=== PATIENT | female | born 1975 | race Caucasian/White ===

== ENCOUNTER 2018-08-19 08:50 | Day surgery (SDC) | payer OTHER, SELFPAY ==
[2018-08-09 07:53] VITALS: BMI 35.6
[2018-08-19] VITALS (9 sets, daily range): BP systolic 104–129; BP diastolic 56–85; PULSE 76–98; RESP 14–24; TEMP 36.2–36.6; O2SAT 95–100; BMI 35.6
--- NOTE | 2018-08-19 | DI.RAD.S_ITS ---
PROCEDURE: XR LUMBAR SPINE 2-3V INDICATIONS: L4-5 MICRODISCECTOMY TECHNIQUE: 2 views of the lumbar spine were acquired. COMPARISON: [facility], CR, XR LUMBAR SPINE W OBL MIN 4VW, 06/18/2017, 12:05. [facility], CR, XR LUMBAR SPINE 2 OR 3 VIEWS, 04/30/2018, 8:42. FINDINGS: Bones: Access port placement for microdiscectomy centered to the right of midline at the posterior elements of L4-L5. Soft tissues: Overlying bowel gas pattern is normal. No suspicious soft tissue calcifications. IMPRESSION: Normal alignment for microdiscectomy port right sided L4-L5 dorsal access. Dictated by: Quentin Huerta M.D. on 08/19/2018 at 16:47 Approved by: Quentin Huerta M.D. on 08/19/2018 at 16:49
[2018-08-19] MEDS: LACTATED RINGERS 1,000 ML 42 ML IV (09:46)
[2018-08-19] MEDS: CEFAZOLIN 2 GM/100 ML FROZ.PIGGY IV (11:25)
--- NOTE | 2018-08-19 11:55 | SUR.OPER ---
Prone on spine table, head in foam head support, padded chest and pelvic supports, gel pad at knees, lower legs supported by pillows; nipples, genitalia and toes free of pressure, arms secured on foam padded arm boards at <90 degrees abduction. Tape over blanket at thigh secured to table.
[2018-08-19] MEDS: BUPIVACAINE 0.25% W/ EPI VIAL 50 ML INJ (12:02)
[2018-08-19] MEDS: methylPREDNISolone acet DEPO 40 MG/ML VIAL INJ (12:03)
--- NOTE | 2018-08-19 12:32 | PM.OP.1 ---
Operative Date/Time/Diagnoses Date of procedure: 08/19/18 Time of procedure: 11:32 Pre-op diagnosis: 1. L4-5 disc herniation 2. L4-5 spondylolisthesis Post-op diagnosis: same Procedure & Clinicians Procedure: 1. L4-5 right microdiscectomy 2. Utilization of microsurgical technique and operating microscope Same procedure as scheduled: Yes Indications: Patient has been having chronic back pain and worsening lumbar radiculopathy. Patient failed multiple conservative management with worsening pain weakness and numbness in her lower extremity. Patient has been having difficulty performing activity of daily living. After discussing risks benefits of treatment options, patient elected proceed with surgery. Surgeon: Pradeep Alfonso Quality Assurance Nurse: Abiola Ann Click Yes if Unassisted: No Anesthesia Type: General Operative Notes Closure Type: primary Specimen(s): none sent Estimated Blood Loss (mL): 10 Blood products transfused: none Procedure in detail: Patient was seen in the preoperative area. Risks and benefits of the surgery was discussed with the patient. Informed consent was obtained from the patient and placed in the chart. Surgical site was marked. Patient was taken to the operative room. General anesthesia was administered. Prophylactic antibiotic was given to the patient less than 30 min before the incision was made. Patient was placed into a prone position on the Layo table. Patient's back was then prepped and draped in the sterile fashion. Time-out was performed at this time. Using AP and lateral C-arm imaging the interval between L4-5 was identified and marked on patient's back. A 1 inch incision 1 in from midline was made on the right side. The fascia was incised in line with skin incision. Globus MARS retractors was placed inside the incision and docked onto the L4 lamina. Using microsurgical technique and operating microscope, a L4 laminotomy was performed using a Kerrison rongeur. Liagamentum flavum was resected at the site of the laminotomy. The disc space at L4-5 was identified. Microdiscectomy was performed by incising the annulus with #11 blade. Microcurettes and pituitary was used to removed herniated disc fragments of disc from the epidural space. After the microdiskectomy was completed, the area medial lateral superior and inferior to the area of the microdiskectomy was inspected and explored using a micro curette. No other impinging structure was identified. The wound was then irrigated with sterile normal saline. 40 mg Depo-Medrol was placed into the epidural space. The deep fascia was closed with 1-0 Vicryl. The subcutaneous tissue was closed with 2-0 Vicryl. The skin was closed with 4-0 Monocryl. Patient tolerated the procedure well. There were no complications. Patient was transferred recovery room in stable condition. Complications: none Condition: stable Disposition: PACU Plan for aftercare: Discharge to home
[2018-08-19] MEDS: HYDROMORPHONE 2 MG INJ 0.5 MG IV ×2 (12:49→12:54)
[2018-08-19] MEDS: OXYCODONE/ACETAMINOPHEN 5/325 TABLET 1 TAB PO ×2 (13:00→13:32)
== END 2018-08-19 13:46 | disposition home or self-care (01) ==
PROVIDERS: Family Provider Physician Assistant; PCP Physician Assistant; Visit Provider Orthopaedic Surgery Orthopaedic Surgery of the Spine
PROC: (CPT 63030; principal; 2018-08-19 11:15)
DX: M51.16 Intervertebral disc disorders with radiculopathy, lumbar region (principal); M43.16 Spondylolisthesis, lumbar region; X50.1XXA Overexertion from prolonged static or awkward postures, initial encounter; F17.210 Nicotine dependence, cigarettes, uncomplicated
CPT/HCPCS: 63030; 72100; 76000; J0330; J0690; J1030; J1100; J1170; J2250; J2405; J2704; J3010

== ENCOUNTER 2019-06-27 09:54 | Inpatient (IN) | payer OTHER, SELFPAY ==
[2019-06-17 08:46] VITALS: BMI 37.9
[2019-06-27] VITALS (16 sets, daily range): BP systolic 100–129; BP diastolic 63–85; PULSE 83–103; RESP 12–18; TEMP 36.5–36.9; O2SAT 93–99; BMI 37.5
--- NOTE | 2019-06-27 | DI.RAD.S_ITS ---
PROCEDURE: XR LUMBAR SPINE 2-3V INDICATIONS: L4-5 TLIF TECHNIQUE: 2 views of the lumbar spine were acquired. COMPARISON: [facility], CR, XR LUMBAR SPINE 2 OR 3 VIEWS, 04/30/2018, 8:42. [facility], CR, XR LUMBAR SPINE 2-3V, 08/19/2018, 11:47. FINDINGS: Bones: 5 lvd-coy-plheryf vertebrae have been documented. There is normal bony alignment established after placement of transverse pedicle screws and vertical fixation rods with interbody disc cage fixation device at the L4-5 level, the targeted level from the operative procedure performed 08/19/18 (port localization for discectomy)... No vertebral body compression fractures. No suspicious bony lesions. Soft tissues: Overlying bowel gas pattern is normal. No suspicious soft tissue calcifications. IMPRESSION: Prior L4-5 port localization for discectomy, current spine fusion crossing L4-5 establishing normal alignment. Interbody disc cage prosthesis device is present, centrally positioned. Dictated by: Quentin Huerta M.D. on 06/27/2019 at 15:35 Approved by: Quentin Huerta M.D. on 06/27/2019 at 15:38
[2019-06-27] MEDS: LACTATED RINGERS 1,000 ML 42 ML IV ×2 (10:30→14:02)
--- NOTE | 2019-06-27 12:09 | PM.PREOP ---
Pre-operative Note Interval Note History & Physical reviewed/Exam performed by Physician: Yes Changes to H&P: No
[2019-06-27] MEDS: CEFAZOLIN 2 GM/100 ML FROZ.PIGGY IV ×2 (13:00→20:52)
[2019-06-27] MEDS: BUPIVACAINE LIPOSOME 266 MG/20 ML VIAL INJ (13:41)
[2019-06-27] MEDS: BUPIVACAINE 0.25% W/ EPI 30 ML VIAL INJ (13:41)
--- NOTE | 2019-06-27 15:35 | PM.OP.1 ---
Operative Date/Time/Diagnoses Date of procedure: 06/27/19 Time of procedure: 12:35 Pre-op diagnosis: 1. L4-5 hx of microdiscectomy with recurrent disc herniation 2. L4-5 spinal stenosis Post-op diagnosis: same Procedure & Clinicians Procedure: 1. L4-5 Postero-lateral and posterior interbody fusion 2. L4-5 interbody cage placement. 3. L4-5 decompressive laminectomy with bilateral facetecomies 4. L4-5 Posterior non-segmental instrumentation 5. [place] of bone marrow from iliac crest 6. Utilization of microsurgical technique and operating microscope Same procedure as scheduled: Yes Indications: Patient has been having chronic back pain and worsening lumbar radiculopathy. Patient had previous history of lumbar microdiskectomy at L4-5 level with temporary relief. Patient's pain worsened over the last 6 month was difficulty performing activity of daily living. Patient failed multiple conservative management with worsening pain weakness and numbness in her lower extremity. Patient has been having difficulty performing activity of daily living. After discussing risks benefits of treatment options, patient elected proceed with surgery. Surgeon: Pradeep Alfonso Correction Officer Reformatory: Laney Cardona Click Yes if Unassisted: No Anesthesia Type: General Operative Notes Closure Type: primary Specimen(s): none sent Prosthetic devices, grafts, tissues, transplants, or devices: Globus revolve screws, Rise cage Estimated Blood Loss (mL): 40 Blood products transfused: none Procedure in detail: Patient was seen in the preoperative area. Risks and benefits of the surgery was discussed with the patient. Informed consent was obtained from the patient and placed in the chart. Surgical site was marked. Patient was taken to the operative room. General anesthesia was administered. Prophylactic antibiotic was given to the patient less than 30 min before the incision was made. Patient was placed into a prone position on the Layo table. Patient's back was then prepped and draped in the sterile fashion. Time-out was performed at this time. Using AP and lateral C-arm imaging the interval between L4-5 was identified and marked on patient's back. A 2 inch incision 2 in from midline was made on the left side first. The fascia was incised in line with skin incision. Globus MARS retractors was placed inside the incision and docked onto the L4 lamina. Using microsurgical technique and operating microscope, a L4 laminectomy and L4-5 facetectomy was performed using a Kerrison rongeur. The disc space at L4-5 was identified. And a total diskectomy was performed at L4-5 level. Patient was found have significant epidural scarring with recurring disc herniation L4-5 level with significant nerve root and thecal sac compression. Laminectomy and total facetectomy was required to decompress the L4-5 level which rendered the L4-5 level grossly unstable and require fusion procedure at the same time. The endplates were decorticated using a rasp and shaver. The total diskectomy and decortication was performed at L4-5 level in order to to accomplish a L4-5 fusion. The local bone from the laminectomy and facetectomy was saved for local bone grafting. After the total diskectomy and decortication was completed, Bio4 bone graft material was combined with local bone that was harvested earlier. At this time, a separate skin is incision was made over the iliac crest. A Jamshidi needle was inserted into the iliac crest through a separate skin incision. 5 cc of bone marrow aspiration was obtained through the separate skin incision using a Jamshidi needle from the iliac crest. The bone marrow aspiration was combined with local bone and the Bio4 bone grafting material. The bone grafting material was placed into the L4-5 interbody space along with a expandable cage. The cage was expanded to its maximum height using the torque limiting screwdriver. At this time a mirror image incision was made on the right side. The fascia was incised in line with the skin incision. Globus MARS retractor was inserted and docked onto the L4-5 posterolateral gutter. Using the power drill, posterior-lateral decortication was performed at L4-5 level until bleeding cortical bone was identified. The remaining bone grafting material was placed into the L4-5 posterior lateral gutter he order to accomplish posterolateral fusion at the L4-5 level. Using the double C-arm technique, pedicle screws were placed into the L4-5 pedicles bilaterally. This was done by placing the Jamshidi needle into the pedicles, then placing the guidewires over the Jamshidi needle, and finally placing the cannulated screws over the guidewires bilaterally. After the pedicle screws were placed, 2 titanium rods was locked into the heads of the pedicle screws using locking caps and torque limiting screwdriver. After all the hardware was placed, and confirmed with AP and lateral C-arm imaging, the wound was then irrigated with sterile normal saline and packed with Ray-Abdelrahman gauze for 3 min to accomplish hemostasis. After the gauze was removed the deep fascia was closed with #1 Vicryl suture. The subcutaneous layer was closed with 2-0 Vicryl. The skin was closed with skin vinicio. Patient tolerated the procedure well. There were no complications. Complications: none Post-operative Condition: stable Disposition: PACU Plan for aftercare: Admit to inpatient hospital
[2019-06-27] MEDS: LORazepam 2 MG/ML INJ 0.25 MG IV ×2 (15:59→16:05)
[2019-06-27] MEDS: fentaNYL 100 MCG/2 ML INJ 50 MCG IV ×2 (16:00→16:10)
[2019-06-27] MEDS: SODIUM CHLORIDE 0.9% 1,000 ML 100 ML IV (17:05)
[2019-06-27] MEDS: OXYCODONE IR 5 MG TABLET 10 MG PO (17:49)
[2019-06-27] MEDS: DOCUSATE 100 MG CAPSULE PO (20:52)
[2019-06-27] MEDS: SENNOSIDES 8.6 MG TABLET 17.2 MG PO (20:52)
[2019-06-28 00:20] VITALS: BP 127/73; PULSE 92; RESP 20; TEMP 37; O2SAT 95
[2019-06-28] MEDS: OXYCODONE IR 5 MG TABLET 10 MG PO ×4 (00:43→12:14)
[2019-06-28] MEDS: SODIUM CHLORIDE 0.9% 1,000 ML 100 ML IV (04:02)
[2019-06-28 04:27] VITALS: BP 116/61; PULSE 92; RESP 18; TEMP 36.8; O2SAT 97
[2019-06-28] MEDS: CEFAZOLIN 2 GM/100 ML FROZ.PIGGY IV (05:16)
[2019-06-28 05:40] LABS: Hematocrit 39.8 % (36-46); Hemoglobin 13.2 g/dL (12.0-16.0)
[2019-06-28] MEDS: SODIUM CHLORIDE 0.9% FLUSH 10 ML IV (07:50)
[2019-06-28] MEDS: DOCUSATE 100 MG CAPSULE PO (07:50)
[2019-06-28 08:00] VITALS: BP 123/66; PULSE 101; RESP 16; TEMP 36.5; O2SAT 96
--- NOTE | 2019-06-28 08:08 | PC.NURSE ---
Addendum entered by Jimena Magana R.N. 06/28/19 14:30: Discharge summary packet reviewed with pt. No voiced concerns. Explained DVT prevention. Prescription for PRN Vistaril and Oxycodone given to pt who will have filled in [place]. States has all belongings. Pt's S.O. Omari present to drive pt home. Pt left unit via wheelchair in no distress at 1419 with this radio script writer. Addendum entered by Jimena Magana R.N. 06/28/19 13:16: Pain controlled with PRn Oxycodone. Last dose around 1215 given prior to OT session and discharge home. Lower back dressing removed, area around both incisions cleansed with NS and coversite dressing applied. Bilateral incisions covered with Xerofrorm gauze, no S/S of infection. Pt tolerated well. Pt now having OT session and is very eager to go home. Original Note: DAy Shift- Pt A&OX4, able to make needs known using call light. S.O. Omari on window seat couch, stayed overnight. Pt reports 3/10 aching, throbbing to low back, tolerable. Pain management plan discussed. Pre-medicate at meal times prior to OT/PT sessions. Pt stated having substance abuse in past and sober for 10.5 years and states plans to wean PRN Oxycodone as soon as she can. Discussed increasing pain med intervals or splitting pills in half for weaning. CMS+, low back dressing intact with small amount of sang drainage shadowing to left mid dressing. Instructed on post op precautions, pt stated she understood. Pt states would like to go home later today. Aware fo Dr, PT, OT approval. No further needs at this time.
--- NOTE | 2019-06-28 10:26 | PM.DS.1 ---
History of Present Illness History of Present Illness Date Patient Seen: 06/28/19 Time Patient Seen: 10:27 Chief complaint: [id number] Narrative: Patient has been having chronic back pain and worsening lumbar radiculopathy. Patient had previous history of lumbar microdiskectomy at L4-5 level with temporary relief. Patient's pain worsened over the last 6 month was difficulty performing activity of daily living. Patient failed multiple conservative management with worsening pain weakness and numbness in her lower extremity. Patient has been having difficulty performing activity of daily living. After discussing risks benefits of treatment options, patient elected proceed with surgery. 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 Alfonso. Hospital course was unremarkable. Post op day 1 patient was ready for discharge home. Patient discharged with ibuprofen, tylenol, visaril and oxycodone. Patient has a history of addiction with methamphetamines and alcohol, denies opioid abuse, and pain management was discussed. Patient eating and voiding without difficulty or assistance prior to discharge. Patient was mobilizing with physical therapy prior to discharge. Patient has outpatient PT scheduled. Dressing was intact with small shadow drainage noted on left side. ASA 81 mg bid for DVT prophylaxis. Status at Discharge Cognitive/behavioral status at discharge: oriented Functional status at discharge: uses cane/walker Overall status at discharge: patient is back to baseline Time Spent with Patient Time spent: Less than 30 minutes Exam Vital Signs (past 8 hours): - 06/28/19 04:27 06/28/19 08:00 Temperature 98.3 F 97.7 F Pulse Rate 92 H 101 H Respiratory Rate 18 16 Blood Pressure 116/61 123/66 Pulse Oximetry 97 96 Oxygen Delivery Method Room Air Oxygen Flow Rate 0 Narrative Exam Narrative: 43 y/o F laying in bed comfortably in no apparent distress. A&Ox3. Dressing is on lower back, intact with shadow drainage on left side. Sensory function grossly intact to light touch on lower extremities. Patient able to actively plantar flex/dorsiflex in lower extremities. Dorsalis Pedis 2+ bilaterally. Capillary refill normal bilaterally. Calves warm, compressible and non-tender. Negative homans sign bilaterally. Objective Labs Result Diagrams: 06/28/19 05:24 Labs: Laboratory Results - last 24 hr 06/28/19 05:24 Hgb 13.2 Hct 39.8 Discharge Plan Discharge Plan Patient Disposition: Home Discharge Med Rec/Prescriptions Prescriptions: New acetaminophen [Tylenol Extra Strength] 500 mg tablet 500 mg PO Q4H PRN (Reason: post-op) Qty: 60 RF: 0 hydroxyzine pamoate [Vistaril] 25 mg capsule 25 mg PO Q6H Qty: 60 RF: 0 oxycodone 5 mg tablet 5 mg PO Q4-6H PRN (Reason: pain) Qty: 40 RF: 0 ibuprofen 400 mg tablet 400 mg PO Q4HR Qty: 60 RF: 0 aspirin 81 mg tablet,delayed release (DR/EC) 81 mg PO BID Qty: 60 RF: 0 Discontinued ibuprofen 800 mg Tablet 800 mg PO Q8H RF: 0 Follow up/Referrals: Pradeep Alfonso MD [Physician] - Mykel Dawson MD [Primary Care Provider] - Provider Discharge Instructions Diet: Regular Activity: Ambulate as tolerated. No excessive bending, twisting, or lifting. Follow TLIF precautions. Cold/Heat Therapy: Continue as needed. Skin/Wound/Dressing Care Report to your healthcare provider any signs of infection, such as:: chills, fever, increased pain and unusual drainage Dressing: Keep dressing dry. If dressing becomes saturated, please contact the office. Visit Report/Discharge Packet Instructions: How to Prevent Falls, DI for Postoperative Pain, Oxycodone, DI for Transforaminal Lumbar Interbody Fusion Visit Report Forms: Stroke Signs & Symptoms Discharge Data Primary Care Provider: Mykel Dawson Quality VTE Deep Vein Thrombosis/Pulmonary Embolism Present on Admission: No
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
--- NOTE | 2019-06-28 14:47 | CM.DANOTE ---
Addendum entered by Verna Thacker 06/28/19 14:53: Patient using cane for device. KJS Original Note: DCP/Assessment: Reviewed chart. Patient is a 43yr old female admitted to [facility] for L4-5 TLIF performed on 06-27-[address] Alfonso. Primary payor is 1)[facility] 2)Self pay. Reviewed chart. Attempted to meet patient this afternoon however, she had already been discharged. Spoke with RN and reviewed therapy notes. Patient cleared to d/c home today by Ortho team and therapy. No identified d/c planning needs. P: Home today. GURVINDER Toro Discharge Planning/Care Management CM Discharge Assessment Start: 06/28/19 14:39 Freq: Status: Discharge Protocol: Document 06/28/19 14:40 KJS (Rec: 06/28/19 14:47 KJS [id number]) Discharge Planning Assessment Assigned Mortgage Loan Computation Clerk GURVINDER Toro Contact Information Omari Loveness (Significant Other) [phone] Advance Directives? No History Provided By Medical Record Has Patient been admitted in last 30 No days? Prior Living Arrangements RV Household Members significant other Independent with ADL's Yes Is patient alert and oriented? Yes Caregiver for Another No DME Already Rented / Owned FWW / Walker Patient/Family Preference OP PT Therapy Barriers to Discharge No Discharge Plan Home Transportation Arrangement Family to provide transport Referrals Initiated None needed Review Status In Process Next Review Type Continued Stay Review Pre-Anesthesia Assessment Start: 06/17/19 08:46 Freq: Status: Complete Protocol: Document 06/17/19 08:46 CAB (Rec: 06/17/19 09:41 CAB [id number]) Pre-Anesthesia Assessment Patient Also Known As (GELA Rivera Patient Information Reviewed Via Phone Assessment Assessment Completed With Patient Diagnostic Results BMP/CMP,CBC Comment Outside labs 05/27/19 scanned to record Primary Care Provider Mykel Dawson Seen Specialist in Last 12 Months Yes Specialist Seen Orthopedist Primary Language Spanish Land Leveler Required No Height 170.18 cm Weight 109.769 kg Body Mass Index (BMI) 37.9 Hearing Ability Normal Visual Impairment No Limitations Visual Assist None Dentition Type Teeth, Natural Present,Teeth, Missing Barriers to Learning None Other Aids No Hx Anesthesia Reactions No Hx Family Anesthesia Reaction No Hx Malignant Hyperthermia No Hx Blood Transfusions No Anesthesia Review Requested No Mounted Police No alcohol intake former Alcohol Intake Frequency Other: Sober x 2009 Smoking Status Current every day smoker Tobacco type cigarettes Smoking packs per day 0.5 Substance Use Type former substance user Comment Sober 2009 Pain Present Pain Reported Musculoskeletal Symptoms Abnormal Gait,Back Pain,Muscle Cramps,Muscle Spasms,Muscle Weakness,Radiating Pain into Limb History of Falling (Recent or History of No ) Patient is completely paralyzed or No completely immobile Mental Status Oriented to own ability Is patient on oxygen? No Does patient have REILLY/SOB No Hx Sleep Apnea No Currently Taking a Beta Artie No Can You Climb a Flight of Stairs Without Yes SOB Hx Chest Pain No Hx SOB No Hx Syncope or Dizziness No Anti-Coagulant Therapy No Has a Health Underwriter No Cardiac Testing No Hx Pacemaker/ICD No Pacemaker Rep Required? No Cardiac Clearance Received Not Applicable Diet Type At Home Regular dysphagia No Bladder Pattern Frequency Urinary Catheter Present No Hx Urinary Self Catheterization No Diabetes No Patient No Lactating No Hx Drug Resistant Organism No Presence of External or Internal Medical No Devices Have you traveled outside the [facility] in the last 30 days? Marital Status Single Lives With significant other Prior Living Arrangements RV Support System Significant Other Does the Patient Have Assistance After Yes Surgery Patient Discharge Plan Description Return Home Comment Lives in an RV Feels Safe in Current Environment Yes Been Physically Hurt or Threatened By a No Person in Current Environment Do you have thoughts of harming yourself None or others? Are you currently considering suicide? No Do you have a plan to hurt yourself or No Plan others? Do You Have Any Spiritual Beliefs That No May Affect Your HC Choices? Do You Have Any Cultural Practices That No May Affect Your HC Choices? Comment Jos Who Can We Speak to About Patient's Care Family, friends Identifying Code for Release of Patient Declines to issue Information Health Care Proxy/Next of Kin Mynor (son) Health Care Proxy Emergency Contact Name Omari (S.O.) Emergency Contact Advance Directives? No: Declines further information Power of Surgical Garment Inspector No PAC Instructions Durable medical equipment, Medications to take/avoid, Nasal antibiotic,No ETOH/ petroleum product on skin DOS, NPO,Post-op transportation,Pre -surgical wash,Sturdy shoes/ comfortable clothes,Do not bring valuables and remove jewelry
== END 2019-06-28 14:19 | disposition home or self-care (01) | DRG 304 ==
PROVIDERS: Admitting Provider Orthopaedic Surgery Orthopaedic Surgery of the Spine; PCP Family Medicine; Visit Provider Orthopaedic Surgery Orthopaedic Surgery of the Spine
PROC: 0SG00AJ Fusion of Lumbar Vertebral Joint with Interbody Fusion Device, Posterior Approach, Anterior Column, Open Approach (ICD-10-PCS; principal; 2019-06-27 12:15)
DX: M51.16 Intervertebral disc disorders with radiculopathy, lumbar region (principal); M43.16 Spondylolisthesis, lumbar region; M96.1 Postlaminectomy syndrome, not elsewhere classified; F17.210 Nicotine dependence, cigarettes, uncomplicated
CPT/HCPCS: 36415; 72100; 76000; 85014; 85018; 97116; 97161; 97165; 97535; 99406; C1776; C9290; J0330; J0690; J1100; J1170; J2060; J2405; J2704; J3010